=== PATIENT | female | born 1955 | race Caucasian/White ===

== ENCOUNTER → 2017-04-26 | Outpatient (CLI) | payer BC ==
[~2017-04-26] MED LIST: ADVAIR 1001 DISK W/D PO; ALTACE PO; FLAX SEED OIL1000 MG PO; MULTI-VITAMIN1 TAB PO; NASACORT AQ16.5 GM; [UNRECOGNIZED DRUG - REMARK] PO
--- NOTE | ~2017-04-26 | MY29 ---
[facility] A Service of [facility] & [facility] RADIOLOGY TEXT RESULTS PATIENT: KERRY TREJO LOCATION: [facility] : 57 UNIT #: [id number] AGE: [address]: Koko Rodriguez APRN SEX: F ORDER DR: [id number] [facility] [address] [facility]. [place], [place] [address] [id number] O MR#: [id number] Acc #: [id number] NAME: KERRY TREJO : 1955 SEX: F STUDY DATE/TIME: 04/26/2017 16:00 UNIT: [facility] ROOM: STUDY DESCRIPTION: MY RINA SCREENING W/ CAD BILAT Attending Physician: Koko Rodriguez A.P.R.N. Referring Physician: Koko Rodriguez A.P.R.N. Ordering Physician: Koko Rodriguez A.P.R.N. Primary Care Physician: Kayla Wetzel A.P.R.N. MEDICAL IMAGING REPORT This report is preliminary unless electronic signature is present EXAM Bilateral digital screening mammogram with CAD, 04/26/2017 at 16:00. HISTORY Family history of breast cancer in sister and grandmother. No personal history of breast cancer. No current complaints. COMPARISON Mild screening mammogram 04/27/2016, 03/25/2015, and 03/05/2014. FINDINGS CC and MLO views were obtained of each breast, utilizing digital technique, and reviewed with an FDA-approved CAD device. Scattered fibroglandular densities are present, greatest in the upper outer right breast. Round markers are placed over the left breast denoting skin lesions. The parenchymal pattern appears stable. No new or developing nodules are identified. There is no architectural distortion. IMPRESSION Benign findings. Routine bilateral screening mammogram is recommended in 1 year. Patients over the age of 40 are entered into a reminder system with target due date for the next mammogram. A result letter will also be sent to the patient. BIRADS: 2 Benign finding. Dictated by... Shahana De La Rosa M.D. [facility] A Service of [facility] & [facility] RADIOLOGY TEXT RESULTS PATIENT: KERRY TREJO LOCATION: [facility] : 57 UNIT #: [id number] AGE: [address]: Koko Rodriguez APRN SEX: F ORDER DR: THIS IS AN ELECTRONICALLY VERIFIED REPORT Shahana De La Rosa M.D. at 04/27/2017 5:03 PM Vane TD: 04/27/2017 15:35 JOB #: [id number] MEDICAL IMAGING REPORT Page 1 of 1 COPY
--- NOTE | ~2017-04-26 | BD1 ---
[facility] A Service of [facility] & [facility] RADIOLOGY TEXT RESULTS PATIENT: KERRY TREJO LOCATION: [facility] : 57 UNIT #: [id number] AGE: [address]: Koko Rodriguez APRN SEX: F ORDER DR: [id number] [facility] [address] [place], [place] [address] [id number] O MR#: [id number] Acc #: [id number] NAME: KERRY TREJO : 1955 SEX: F STUDY DATE/TIME: 04/26/2017 15:58 UNIT: [facility] ROOM: STUDY DESCRIPTION: BD Dexa Bone Dens 1+ Site Attending Physician: Koko Rodriguez A.P.R.N. Referring Physician: Koko Rodriguez A.P.R.N. Ordering Physician: Koko Rodriguez A.P.R.N. Primary Care Physician: Kayla Wetzel A.P.R.N. MEDICAL IMAGING REPORT This report is preliminary unless electronic signature is present EXAM Bone densitometry, 04/26/2017 HISTORY 62-year-old postmenopausal female. FINDINGS The bone mineral density of the lumbar spine (L1-L4) is calculated at 1.046 g/cm2. This correlates with a T-score of 0 and a Z-score of 1.5. This is classified as normal bone mineralization. There has been a 3.7% decrease since 2014. The bone mineral density of the left proximal femoral neck is calculated at 0.754 g/cm2. There is correlates with a T-score of -0.9 and a Z-score of 0.5. This is classified as normal bone mineralization. There has been a 4.6% decrease since 2014. IMPRESSION 1. Normal bone mineralization. 2. Decreasing bone mineral density since the 2014 comparison. Dictated by... Leland Storm M.D. THIS IS AN ELECTRONICALLY VERIFIED REPORT Leland Storm M.D. at 04/27/2017 3:23 PM ROSALIA/puma TD: 04/27/2017 11:57 JOB #: [id number] MEDICAL IMAGING REPORT Page 1 of 1 COPY
== END | disposition home or self-care (01) ==
LOC: CWCC 15:40
DX: Z13.820 Encounter for screening for osteoporosis (principal); Z12.31 Encounter for screening mammogram for malignant neoplasm of breast; Z80.3 Family history of malignant neoplasm of breast
CPT/HCPCS: 77080; G0202